=== PATIENT | male | born 1995 | race Caucasian/White ===

== ENCOUNTER 2020-07-19 11:40 | Emergency (ER) | payer OTHER ==
[~2020-07-19] VITALS: Ht 177.8 cm; Wt 79.8 kg
--- NOTE | 2020-07-19 11:45 | NUR ---
at bedside to examine patient.
[2020-07-19 12:02] LABS: BASOPHILS # (AUTO) 0.1 K/uL (0.0-8.0); BASOPHILS % (AUTO) 0.9 % (0.0-2.0); EOSINOPHILS # (AUTO) 0.1 K/uL (0.0-0.7); EOSINOPHILS % (AUTO) 0.8 % (0.0-7.0); HEMATOCRIT 46.2 % (36.7-47.1); HEMOGLOBIN 16.2 g/dL (12.5-16.3); LYMPHOCYTES # (AUTO) 1.4 K/uL (20.0-40.0); LYMPHOCYTES % (AUTO) 21.3 % (20.5-51.5); MEAN CORPUSCULAR HEMOGLOBIN 33.7 uug (23.8-33.4); MEAN CORPUSCULAR HGB CONC 35 g/dL (32.5-36.3); MEAN CORPUSCULAR VOLUME 96.3 fL (73.0-96.2); MONOCYTES # (AUTO) 0.4 K/uL (2.0-10.0); MONOCYTES % (AUTO) 6.7 % (0.0-11.0); NEUTROPHILS # (AUTO) 4.6 K/uL (1.8-8.9); NEUTROPHILS % (AUTO) 70.3 % (38.5-71.5); PLATELET COUNT (AUTO) 250 K/uL (152-348); WHITE BLOOD COUNT (AUTO) 6.5 K/uL (3.6-10.2)
[2020-07-19 12:09] LABS: CREATININE 0.9 mg/dL (0.6-1.3); POTASSIUM 3.8 mmol/L (3.5-5.1)
[2020-07-19 12:15] LABS: BILIRUBIN,DIRECT 0.2 mg/dL (0.0-0.2); BILIRUBIN,TOTAL 0.5 mg/dL (0.2-1.0); TOTAL PROTEIN, SERUM 7.8 g/dL (6.4-8.2)
[2020-07-19 12:18] LABS: *BILIRUBIN,URIN NEGATIVE (NEGATIVE); *BLOOD, URINE NEGATIVE (NEGATIVE); *CLARITY,URINE CLOUDY (CLEAR); *COLOR,URINE YELLOW (YELLOW); *KETONES,URINE NEGATIVE (NEGATIVE); *UROBILINOGEN,URINE 0.2 E.U./dl (NORMAL); LEUKOCYTE ESTERASE ,URINE NEGATIVE (NEGATIVE); NITRITE, URINE NEGATIVE (NEGATIVE); UGLUCOSE NEGATIVE (NEGATIVE)
[2020-07-19 12:23] LABS: ETHANOL < 3 MG/DL (0-0)
--- NOTE | 2020-07-19 12:33 | NUR ---
at beside to discussed care plan.
[2020-07-19] MEDS ORDERED: LORAZEPAM 0.5 MG TABLET ONE (12:41)
[2020-07-19] MEDS ORDERED: LORAZEPAM 0.5 MG TABLET PO ONE (12:45)
--- NOTE | 2020-07-19 12:49 | NUR ---
DCD instructions and prescription given to pt. who verbalized understanding. Pt left room [id number] vitals stable
[2020-07-19 13:00] LABS: LACTATE DEHYDROGENASE 200 U/L (85-227)
[2020-07-19 15:04] LABS: BACTERIA,URINE FEW /HPF (NONE SEEN); RBC,URINE 0-3 /HPF (0-3); SQUAMOUS EPITHELIAL CELL,UR FEW /HPF (NONE SEEN); URINE AMORPHOUS URATE MODERATE /HPF
[2020-07-19 15:05] LABS: WBC,URINE 0-3 /HPF (0-3)
== END 2020-07-19 12:59 | disposition home or self-care (01) ==
LOC: ER 11:40
DX: F41.1 Generalized anxiety disorder (principal); R91.8 Other nonspecific abnormal finding of lung field; Z20.828 Contact with and (suspected) exposure to other viral communicable diseases
CPT/HCPCS: 36415; 70030-TC; 71045; 83615; 83690; 85025; 93005; A4663

== ENCOUNTER 2020-08-25 10:39 | Emergency (ER) | payer OTHER ==
[~2020-08-25] VITALS: Ht 177.8 cm; Wt 81.6 kg
[2020-08-25] MEDS ORDERED: OMEP20CA15 PO (10:47)
--- NOTE | 2020-08-25 10:47 | NUR ---
Dr Greenwood at the bedside for MSE.
[2020-08-25] MEDS ORDERED: MAG HYDROX/AL HYDROX/SIMETH 30 ML LIQUID UDC PO ONE (11:00)
[2020-08-25] MEDS ORDERED: LIDOCAINE VISCUS 2% 15 ML UDC MM ONE (11:00)
[2020-08-25] MEDS ORDERED: MAG HYDROX/AL HYDROX/SIMETH 30 ML LIQUID UDC ONE (11:12)
[2020-08-25] MEDS ORDERED: LIDOCAINE VISCUS 2% 15 ML UDC ONE (11:12)
[2020-08-25] MEDS ORDERED: LORAZEPAM 0.5 MG TABLET ONE (11:12)
[2020-08-25] MEDS ORDERED: LORAZEPAM 0.5 MG TABLET PO ONE (11:15)
--- NOTE | 2020-08-25 11:55 | NUR ---
Pt states feeling better, and wishes to be discharged.
--- NOTE | 2020-08-25 12:09 | NUR ---
Patient discharged to home in stable condition. Written and verbal after care instructions given. Patient verbalizes understanding of instructions. Stressed follow up or return to ER for worsening s/s.
[2020-08-25 12:10] VITALS: BP 138/88
== END 2020-08-25 12:11 | disposition home or self-care (01) ==
LOC: ER 10:39
DX: K21.9 Gastro-esophageal reflux disease without esophagitis (principal); F41.9 Anxiety disorder, unspecified; R00.1 Bradycardia, unspecified; Z79.899 Other long term (current) drug therapy
CPT/HCPCS: 93005; A4663